=== PATIENT | male | born 1995 | race Caucasian/White ===

== ENCOUNTER 2024-07-11 21:33 | Emergency (ER) | payer BC ==
[~2024-07-11] VITALS: Ht 172.7 cm; Wt 89.5 kg
[2024-07-11 21:40] VITALS: TEMP 99.8
[2024-07-11] MEDS ORDERED: dexAMETHasone 10 MG/ML VIAL IV ONE (22:15)
[2024-07-11] MEDS ORDERED: NS 1,000 ML IV ONE (22:15)
[2024-07-11] MEDS ORDERED: HYDROmorphone 0.5 MG/0.5 ML SYRINGE IV ONE (22:15)
[2024-07-11] MEDS ORDERED: NS 50 ML IV SCH (22:33)
[2024-07-11] MEDS ORDERED: Iohexol 300 - 100 ML VIAL IV ONE (22:33)
[2024-07-11 22:37] LABS: HEMATOCRIT 47.9 % (42.0-52.0); HEMOGLOBIN 16.8 g/dl (13.5-18.0); MEAN CELL VOLUME 87 fl (80.0-100.0); MEAN CORPUSCULAR HEMOGLOBIN 31 pg (27-31); MEAN CORPUSCULAR HGB CONC 35 g/dl (33.0-37.0); MEAN PLATELET VOLUME 9.5 fl (7.4-10.4); PLATELET COUNT 239 K/mm3 (130-400); REDCELL DISTRIBUTION WIDTH-CV 11.6 % (11.5-14.5)
[2024-07-11 22:55] LABS: ALBUMIN 3.8 g/dL (3.5-5.0); BAND 2 % (0-10); BILIRUBIN,TOTAL 1.3 mg/dL (0.2-1.2); C-REACTIVE PROTEIN 18.77 mg/dL (0.00-0.50); CREATININE, serum 0.88 mg/dL (0.72-1.25); LYMPHOCYTE 7 % (20.0-51.0); NEUTROPHILS 83 % (42.0-75.2); PLATELET ESTIMATE NORMAL (NORMAL); POTASSIUM 3.9 mEq/L (3.5-4.5); TOTAL PROTEIN 8.7 g/dl (6.2-8.1)
[2024-07-12] MEDS ORDERED: CLEOCIN HCL300 MG PO (00:28)
[2024-07-12] MEDS ORDERED: Home HYDROcodone/Acetaminophen 5/325 MG #4 TABS/PACK PO ONE (00:30)
[2024-07-12 00:48] VITALS: BP 142/97; PULSE 98
== END 2024-07-12 00:48 | disposition home or self-care (01) ==
LOC: COL.ER 21:33
PROVIDERS: Nurse Practitioner
DX: J36 Peritonsillar abscess (principal)
CPT/HCPCS: J0737; J1100; J1170; J7030; Q9967